=== PATIENT | female | born 1950 | race African-American/Black ===

== ENCOUNTER 2020-04-16 09:26 | Emergency (ER) | payer MEDICARE, MEDICAID ==
[~2020-04-16] VITALS: Ht 172.7 cm; Wt 78.0 kg
[~2020-04-16 09:26] MED LIST: NAPR250T; OMEP20CA14; SIMV20TA2; [UNRECOGNIZED DRUG - OTHER]
[2020-04-16 10:44] LABS: BASOPHILS % 0.3 % (0.0-2.0); EOSINOPHILS % 4.3 % (0.0-5.0); HEMATOCRIT. 36.7 % (36.0-48.0); HEMOGLOBIN. 12.2 g/dL (12.0-16.0); LYMPHOCYTES % 26.4 % (20.0-50.0); MEAN CORPUSCULAR HEMOGLOBIN 28.3 pg (28.0-32.0); MEAN CORPUSCULAR VOLUME 85.2 fL (81.0-99.0); MEAN PLATELET VOLUME 6.2 fl (7.4-10.4); MONOCYTES % 8.9 % (2.0-8.0); NEUTROPHILS % 60.1 % (40.0-76.0); PLATELET 220 x1000/uL (130-400); RED CELL DISTRIBUTION WIDTH 14.7 % (11.6-14.6)
[2020-04-16 10:51] LABS: CHLORIDE 110 mEq/L (98-107)
[2020-04-16 12:30] VITALS: BP 114/60
== END 2020-04-16 13:51 | disposition home or self-care (01) ==
LOC: ER 09:26
DX: R60.9 Edema, unspecified (principal); Z79.899 Other long term (current) drug therapy
CPT/HCPCS: 36415; 71045; 80053; 83880; 84484; 85025; 93005; 93970; 99285